=== PATIENT | female | born 1995 | race African-American/Black ===

== ENCOUNTER 2021-08-09 11:32 | Emergency (ER) | payer OTHER, SELFPAY ==
--- NOTE | 2021-08-09 11:41 | ED.URI ---
HPI - URI/Sore Throat General Chief Complaint: Upper Respiratory Infection Stated Complaint: Flu Time Seen by Provider: 08/09/21 11:41 Source: patient Mode of arrival: ambulatory Limitations: no limitations History of Present Illness HPI Narrative: Eyad is a 26-year-old female patient who ambulated into the [facility]. She has a 1 day history of body aches, headache, chills, patient states her mother has the same thing. Patient has no allergies, patient has no medical history or surgical history. Patient was not vaccinated for Covid or influenza this year. MD elicited complaint: fever and nasal congestion Review of Systems Review of Systems: CONSTITUTIONAL: + body aches, denies fever, +chills, or sweats. EYES: Denies visual changes, redness, or discharge. ENT: Denies rhinorrhea,+ congestion,denies sore throat, or otalgia. CARDIOVASCULAR: Denies chest pain, palpitations, or edema. RESPIRATORY: Denies cough or dyspnea. GASTROINTESTINAL: Denies abdominal pain, nausea, vomiting, or diarrhea. GENITOURINARY: Denies dysuria or hematuria. SKIN: Denies rash, itching, or wounds. MUSCULOSKELETAL: Denies back pain, joint pain, or myalgia. NEUROLOGIC: + headache,denies numbness, tingling, or weakness. PSYCH: Denies depression or anxiety. All systems reviewed & are unremarkable except as noted in HPI and below PMFSH Comments At time of signature, I have reviewed and agree with nursing past medical, surgical, social and family history unless otherwise noted. Please see nursing chart for further information. There is no relevant family history pertinent to the presenting complaint Exam Narrative: GENERAL: Well-appearing, well-nourished, and in no acute distress. HEAD: Normocephalic, atraumatic. EYES: EOMI. No redness or drainage. Conjunctivae normal. ENT: Mucous membranes pink and moist. Nares clear. No rhinorrhea. TMs normal bilaterally. Posterior pharynx has mild edema , mild erythema , no exudate Uvula midline. NECK: Normal AROM. Supple. No lymphadenopathy. CHEST: No respiratory distress. Clear to auscultation. HEART: Regular rate and rhythm. No murmur appreciated. Normal peripheral pulses. MUSCULOSKELETAL: No bony tenderness. EXTREMITIES: Normal range of motion. No edema. SKIN: Warm, hot, no rash. Capillary refill normal. Normal skin turgor. NEURO: No focal deficits. Alert and oriented x3. Gait steady. PSYCH: Normal affect. No signs of depression or anxiety. Course Vital Signs Vital signs: Vital Signs Temperature 36.9 C 08/09/21 11:47 Pulse Rate 106 H 08/09/21 11:47 Respiratory Rate 16 08/09/21 11:47 Blood Pressure 130/59 L 08/09/21 11:47 Pulse Oximetry 100 08/09/21 11:47 Temperature 36.9 C 08/09/21 11:47 Pulse Rate 106 H 08/09/21 11:47 Respiratory Rate 16 08/09/21 11:47 Blood Pressure 130/59 L 08/09/21 11:47 Pulse Oximetry 100 08/09/21 11:47 Reviewed. Pt has been instructed to follow up with her PCP regarding her elevated blood pressure today. MDM - URI/Sore Throat MDM Narrative Medical decision making narrative: Influenza a and B are both negative. She has only 1 day of symptoms. Patient will be offered a Covid PCR test via the drive-through on Tuesday. Patient is use [id number] cold medications Differential Diagnosis Differential diagnosis: Likely upper respiratory infection, sinusitis, viral infection, influenza and pharyngitis Medical Records Attestation: I reviewed the patient's medical records. Lab Data Attestation: I reviewed the patient's lab results. Labs: Lab Results 08/09/21 Range/Units 11:56 POC SARS CoV-2 Ag Negative (Negative) Influenza A Screen Negative Reference Range: Negative Influenza B Screen Negative Reference Range: Negative Critical Care Time Critical Care Time Critical Care Time: No Discharge Danie
[2021-08-09 11:47] VITALS: BP 130/59; PULSE 106; RESP 16; TEMP 36.9; O2SAT 100
== END 2021-08-09 12:45 | disposition home or self-care (01) ==
PROVIDERS: Emergency Provider Nurse Practitioner Family
DX: B34.9 Viral infection, unspecified (principal); Z20.822 Contact with and (suspected) exposure to COVID-19
CPT/HCPCS: 87426; 87804; 99203; C9803; G0463

== ENCOUNTER 2022-08-25 09:09 | Emergency (ER) | payer OTHER, SELFPAY ==
[2022-08-25 09:15] VITALS: BP 101/86; PULSE 100; RESP 18; TEMP 36.4; O2SAT 100
--- NOTE | 2022-08-25 09:22 | ED.EAR ---
HPI - Ear Problem General Chief complaint: Ear Stated complaint: ear ache Time Seen by Provider: 08/25/22 09:11 History of Present Illness HPI Narrative: 27-year-old female presents to the emergency room for evaluation of an earache she has had for 3 weeks. Patient states that she was at an outside emergency room for this earache and was diagnosed with swimmer's ear. Patient states that she has taken her prescribed medication for 10 days and is not experiencing any relief. Reports drainage from the right ear tenderness on palpation. Review of Systems Review of Systems: CONSTITUTIONAL: Denies fever, chills, or sweats. EYES: Denies visual changes, redness, or discharge. ENT: Reports right ear pain CARDIOVASCULAR: Denies chest pain, palpitations, or edema. RESPIRATORY: Denies cough or dyspnea. GASTROINTESTINAL: Denies abdominal pain, nausea, vomiting, or diarrhea. GENITOURINARY: Denies dysuria or hematuria. SKIN: Denies rash or itching. MUSCULOSKELETAL: Denies back pain, joint pain, or myalgia. NEUROLOGIC: Denies headache, numbness, dizziness, or weakness. PSYCHIATRIC: Denies anxiety or depression. Exam Narrative: GENERAL: Well-appearing, well-nourished, no physical limitations, and in no acute distress. HEAD: Normocephalic, atraumatic. EYES: Conjunctivae normal, PERRLA and EOMI. ENT: External nose normal, Nares clear, no rhinorrhea or epistaxis. Mucous membranes moist. Oropharynx without tonsillar hypertrophy exudate or other lesions. External ears normal. Right ear canal edematous. Right tragal tenderness CHEST: Clear to auscultation. No respiratory distress. No wheezes rales or rhonchi. HEART: Regular rate and rhythm. No murmur heard. Normal peripheral pulses. EXTREMITIES: Normal range of motion. No edema. No clubbing or cyanosis SKIN: Warm, dry, no rash. No noted wounds NEURO: No focal deficits. Alert and oriented x3. MAEW. CN's II-XI intact bilaterally, normal gait PSYCH: Cooperative. Normal mood and affect. Course Vital Signs Vital signs: Vital Signs Temperature 36.4 C 08/25/22 09:15 Pulse Rate 100 08/25/22 09:15 Respiratory Rate 18 08/25/22 09:15 Blood Pressure 101/86 08/25/22 09:15 Pulse Oximetry 100 08/25/22 09:15 Oxygen Delivery Room Air 08/25/22 09:15 Temperature 36.4 C 08/25/22 09:15 Pulse Rate 100 08/25/22 09:15 Respiratory Rate 18 08/25/22 09:15 Blood Pressure 101/86 08/25/22 09:15 Pulse Oximetry 100 08/25/22 09:15 Oxygen Delivery Room Air 08/25/22 09:15 Medical Decision Making Vital Signs Vital Signs: Vital Signs Temperature 36.4 C 08/25/22 09:15 Pulse Rate 100 08/25/22 09:15 Respiratory Rate 18 08/25/22 09:15 Blood Pressure 101/86 08/25/22 09:15 Pulse Oximetry 100 08/25/22 09:15 Oxygen Delivery Room Air 08/25/22 09:15 Temperature 36.4 C 08/25/22 09:15 Pulse Rate 100 08/25/22 09:15 Respiratory Rate 18 08/25/22 09:15 Blood Pressure 101/86 08/25/22 09:15 Pulse Oximetry 100 08/25/22 09:15 Oxygen Delivery Room Air 08/25/22 09:15 Discharge Plan Discharge Clinical Impression: Otitis externa Patient Disposition: Home, Self-Care Condition: Stable Instructions: Antibiotic Form, Swimmer's Ear (ED) Prescriptions: New ofloxacin 0.3 % drops 2 drp otic (ear) QID Qty: 10 0RF Follow-up/Referrals: PHYSICIAN,STAFF COUNSEL [Primary Care Provider] - Time of Disposition: :24
== END 2022-08-25 09:50 | disposition home or self-care (01) ==
LOC: ANHED 09:27
PROVIDERS: Emergency Provider Nurse Practitioner Family
DX: H60.91 Unspecified otitis externa, right ear (principal)
CPT/HCPCS: 96372; 99283; J1100

== ENCOUNTER 2023-04-20 18:41 | Emergency (ER) | payer OTHER, SELFPAY ==
[2023-04-20 18:48] VITALS: BP 119/67; PULSE 87; RESP 16; TEMP 36.8; O2SAT 100
--- NOTE | 2023-04-20 19:48 | PC.NURSE ---
attempted to call patient to room. no answer
--- NOTE | 2023-04-20 20:26 | PC.NURSE ---
2nd attempt to call patient. no answer
== END 2023-04-20 22:41 | disposition left against medical advice (07) ==
DX: H92.02 Otalgia, left ear (principal)
CPT/HCPCS: 99199

== ENCOUNTER 2023-04-20 19:40 | Emergency (ER) | payer OTHER, SELFPAY ==
--- NOTE | 2023-04-20 19:47 | ED.EAR ---
HPI - Ear Problem General Chief complaint: Ear Stated complaint: Ear Irritation Time Seen by Provider: 04/20/23 19:48 Source: patient Mode of arrival: ambulatory Limitations: no limitations History of Present Illness HPI Narrative: Patient is a 27-year-old female who presents with left ear pain for 3 days. Reports last time she had similar symptoms she had an ear infection. Denies any congestion, sore throat, fever, chills, nausea, vomiting, diarrhea. MD Complaint: ear pain Related Data Allergies Allergy/AdvReac Type Severity Reaction Status Date / Time No Known Allergies Allergy Verified 04/20/23 19:46 Review of Systems Review of Systems: All systems reviewed & are unremarkable except as noted in HPI and below Constitutional: Constitutional: Denies body ache(s), Denies chills, Denies fever(s), Denies headache(s) and Denies malaise Eyes: Eyes: Denies blurry vision, Denies eye discharge and Denies irritation ENT: Reports otalgia, Denies headache(s), Denies nasal congestion, Denies nasal discharge and Denies sore throat Cardiovascular: Cardiovascular: Denies chest pain, Denies edema, Denies palpitations and Denies dyspnea on exertion Respiratory: Respiratory: Denies cough and Denies dyspnea on exertion Gastrointestinal: Gastrointestinal: Denies abdominal pain, Denies diarrhea, Denies nausea and Denies vomiting Musculoskeletal: Musculoskeletal: Denies back pain, Denies arthralgias and Denies muscle weakness Integumentary/Breasts: Skin/Breast: Denies pruritus and Denies rash Neurologic: Denies headache(s) Psychiatric: Psychiatric: Reports no additional psychiatric complaints Endocrine: Endocrine: Denies palpitations PMFSH Comments At time of signature, agree with nursing past medical, surgical, social and family history. There is no relevant family history pertinent to the presenting complaint? Exam Const: General: cooperative, healthy appearing, no acute distress and well nourished Nutritional Appearance: well nourished Orientation/consciousness: patient oriented x3 Limitations: no limitations HENMT: Head: normal to inspection, normocephalic and atraumatic Ears: hearing grossly normal bilaterally, TM normal on the right, no periauricular adenopathy, Abnormal EAC present erythema on the left, edema on the left and EAC tenderness on the left and TM abnormal bulging on the left and erythematous on the left Face/Nose/Sinus: Normal external nose present, Normal nares present, Normal nasal mucous membranes and turbinates present, No nasal discharge present, normal facial exam and sinuses nontender Face and sinus: normal facial exam and sinuses nontender Mouth: Yes Normal oral and palatal mucosa present, Yes lip normal, Yes tongue normal and Yes moist mucous membranes Throat: posterior oropharynx normal, tonsils normal and uvula midline Eyes: General: appearance normal, both eyes and all related structures Alignment and Position: alignment normal and position normal Eyelids: eyelids normal Pupils: Equal, round and reactive pupils present EOM: EOMs intact bilaterally Neck: Neck: normal visual inspection, full ROM, no lymphadenopathy and supple Chest: Chest palpation & inspection: normal inspection of the chest Resp: Effort & Inspection: normal respiratory effort and able to speak in complete sentences Auscultation: clear to auscultation bilaterally, no crackles, no rales, no rhonchi and no wheezes Cardio: Rate: regular rate Rhythm: regular rhythm Heart sounds: S1 normal heart sound present and S2 normal heart sound present Skin: General skin exam: normal color and no rashes or lesions noted Neuro: General: patient oriented x3 and moves all extremities Cranial nerves: Yes Equal, round and reactive pupils present Cognition (Neuro): normal cognition Speech: normal speech Gait exam (Neuro): Normal gait present Extrem: General: normal to inspection and full ROM Psych: Appearance: grossly normal and well kempt Me
[2023-04-20 19:48] VITALS: BP 118/79; PULSE 94; RESP 16; TEMP 37.8; O2SAT 100
== END 2023-04-20 20:28 | disposition home or self-care (01) ==
PROVIDERS: Emergency Provider Nurse Practitioner Family
DX: H60.92 Unspecified otitis externa, left ear (principal); H66.002 Acute suppurative otitis media without spontaneous rupture of ear drum, left ear
CPT/HCPCS: 99213; G0463

== ENCOUNTER 2023-08-31 10:59 | Outpatient (CLI) | payer OTHER, SELFPAY ==
[2023-08-31 11:29] LABS: Hematocrit 34.6 % (37.0-47.0); Hemoglobin 9.8 g/dL (12.0-15.0); Mean Corpuscular HGB Conc 28.3 g/dl (32-36); Mean Corpuscular Hemoglobin 23.3 pg (26-34); Mean Corpuscular Volume 82.4 fl (80-100); Mean Platelet Volume 12.1 fl (7.4-10.4); Platelet Count Result 268 k/mm3 (150-375); Red Cell Distribution Width 14.2 % (11.5-14.5); White Blood Count 6.5 K/mm3 (4.5-10.0)
[2023-08-31 11:33] LABS: Appearance Urine Clear (Clear); Bilirubin Urine Negative (Negative); Blood Urine Negative (Negative); Color Urine Yellow (Yellow); Glucose Urine UA Negative (Negative); Ketones Urine Negative (Negative); Leukocyte Esterase Ur Negative LEU/UL (NEGATIVE); Nitrate Urine Negative (Negative); Protein Urine Negative (Negative); Specific Grav Ur 1.027 (1.001-1.035); Urobilinogen Urine 0.2 mg/dL (<2.0); pH Urine 6.5 (5.0-9.0)
[2023-08-31 11:36] LABS: Add Urine Microscopic? NO
[2023-08-31 11:44] LABS: Alanine Aminotransferase 18 U/L (6-35); Albumin Level 4.4 g/dL (3.5-5.1); Alkaline Phosphatase 53 U/L (38-126); Anion Gap 6 mmol/L (8-16); Aspartate Amino Transferase 24 U/L (14-36); Bilirubin,Total 0.2 mg/dL (0.2-1.3); Blood Urea Nitrogen 15 mg/dL (7-17); Calcium 9.3 mg/dL (8.4-10.2); Carbon Dioxide 27 mmol/L (22-30); Chloride 107 mmol/L (98-107); Cholesterol 156 mg/dL (0-200); Estimated Glomerular Filt Rate > 60; Glucose 94 mg/dL (65-110); HDL Direct 47 mg/dL; Potassium 4.1 mmol/L (3.4-5.0); Sodium 140 mmol/L (137-145); Triglycerides 46 mg/dL (<150)
[2023-08-31 11:51] LABS: Hemoglobin A1C 5.4 % (<5.7)
[2023-08-31 11:55] LABS: LDL Cholesterol Direct 85 mg/dL
[2023-08-31 12:05] LABS: Free T4 Free Thyroxine 0.82 ng/mL (0.78-2.19); Vitamin D 25 Hydroxy 18.9 ng/mL
== END 2023-08-31 11:00 | disposition home or self-care (01) ==
LOC: ANHLAB 11:02
PROVIDERS: PCP Emergency Medicine; Visit Provider Emergency Medicine
DX: Z00.00 Encounter for general adult medical examination without abnormal findings (principal); H60.92 Unspecified otitis externa, left ear
CPT/HCPCS: 36415; 80053; 80061; 81003; 82306; 83036; 84439; 84443; 85027

== ENCOUNTER 2025-05-15 10:36 | Outpatient (CLI) | payer OTHER, SELFPAY ==
[2025-05-15 11:04] LABS: Hematocrit 35.6 % (37.0-47.0); Hemoglobin 10.5 g/dL (12.0-15.0); Mean Corpuscular HGB Conc 29.5 g/dl (32-36); Mean Corpuscular Hemoglobin 24.0 pg (26-34); Mean Corpuscular Volume 81.5 fl (80-100); Platelet Count Result 241 k/mm3 (150-375); Red Blood Count 4.37 M/mm3 (4.2-5.4); White Blood Count 7.7 K/mm3 (4.5-10.0)
[2025-05-15 11:23] LABS: Alanine Aminotransferase 23 U/L (6-35); Albumin Level 4.4 g/dL (3.5-5.1); Alkaline Phosphatase 63 U/L (38-126); Anion Gap 8 mmol/L (4-12); Aspartate Amino Transferase 27 U/L (14-36); Bilirubin,Total 0.3 mg/dL (0.2-1.3); Blood Urea Nitrogen 13 mg/dL (7-17); Calcium 9.5 mg/dL (8.4-10.2); Carbon Dioxide 25 mmol/L (22-30); Chloride 103 mmol/L (98-107); Cholesterol 146 mg/dL (0-200); Estimated Glomerular Filt Rate > 60; Glucose 91 mg/dL (65-110); HDL Direct 42 mg/dL; Potassium 4.1 mmol/L (3.4-5.0); Sodium 136 mmol/L (137-145); Total Protein 8.1 g/dL (6.3-8.2); Triglycerides 43 mg/dL (<150)
--- OUTSIDE RECORDS SUMMARY | 2025-05-15 11:28 | XMS_ITS | Clinical Summary ---
Author Organization [facility] Address [address] [place] [address] Care Team Providers Care Pitching Coach Name Role Phone No, Physician Primary Care Provider [phone] Allergies No known active allergies Social History Tobacco Use Types Packs/Day Years Used Date Smoking Tobacco: Never Assessed Personal Safety Answer Date Recorded Getting School Help Needed Denies 08/06 Comments No Sex and Gender Information Value Date Recorded Sex Assigned at Not on file Legal Sex Female 6:56 PM DIRECTOR OF OCCUPATIONAL THERAPY Gender Identity Not on file Sexual Orientation Not on file Obstetrics History Last Filed Vital Signs Vital Sign Reading Time Taken Comments Blood Pressure 126/71 08/20/2022 10:27 AM DIRECTOR OF OCCUPATIONAL THERAPY Pulse 74 08/20/2022 10:27 AM DIRECTOR OF OCCUPATIONAL THERAPY Temperature 37.1 C (98.8 F) 08/20/2022 10:27 AM DIRECTOR OF OCCUPATIONAL THERAPY Respiratory Rate 18 08/20/2022 10:27 AM DIRECTOR OF OCCUPATIONAL THERAPY Oxygen Saturation 100% 08/20/2022 10:27 AM DIRECTOR OF OCCUPATIONAL THERAPY Inhaled Oxygen Concentration - - Weight 93.5 kg (206 lb 2.1 oz) 08/20/2022 10:27 AM DIRECTOR OF OCCUPATIONAL THERAPY Height 162.6 cm (5' 4) 08/20/2022 10:27 AM DIRECTOR OF OCCUPATIONAL THERAPY Body Mass Index 35.38 08/20/2022 10:27 AM DIRECTOR OF OCCUPATIONAL THERAPY Plan of Treatment Not on file Insurance [facility] Care Teams Pitching Coach Relationship Specialty Start Date End Date No, Physician PCP - General 06/15/20
--- OUTSIDE RECORDS SUMMARY | 2025-05-15 11:28 | XMS_ITS | Clinical Summary ---
Author Organization [facility] Address [address] [place] [id number] Care Team Providers Care Access Director Name Role Phone None, Provider MD Primary Care Provider Unavaila ble Allergies No known active allergies Medications fluticasone propionate (FLONASE) 50 MCG/ACT nasal spray 1 spray by Nasal route daily. 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 Gender Identity Not on file Sexual Orientation Not on file Last Filed Vital Signs Vital Sign Reading Time Taken Comments Blood Pressure 134/81 10/27/2019 1:40 PM CDT Pulse 94 10/27/2019 1:40 PM CDT Temperature 36.4 C (97.6 F) 10/27/2019 11:13 AM CDT Respiratory Rate 20 10/27/2019 1:40 PM CDT Oxygen Saturation 99% 10/27/2019 1:40 PM CDT Inhaled Oxygen Concentration - - Weight 87.5 kg (193 lb) 10/27/2019 11:13 AM CDT Height 162.6 cm (5' 4) 10/27/2019 11:13 AM CDT Body Mass Index 33.13 10/27/2019 11:13 AM CDT Plan of Treatment Health Maintenance Due Date Last Done Comments Cervical Cancer Screening Pa p Smear (Age 21 to 29) Every 3 Years 1997 Cervical Cancer Screening 1997 Annual Physical 2000 Hepatitis C 2015 DTaP, Tdap and Td Vaccines ( 1 - Tdap) 2016 Hepatitis B Vaccines (1 of 3 - 19+ 3-dose series) 2016 HPV Vaccines (1 - 3-dose SCD M series) 2024 COVID-19 Vaccine (1 - 2023-2 5 season) 2025 Meningococcal B Vaccine Aged Out No l onger eligible based on patient's age to complete this topic Meningococcal Vaccine Aged Out No oseas maribel eligible based on patient's age to complete this topic Pneumococcal Vaccine: Pediat rics (0 to 5 Years) and At-Risk Patients (6 to 49 Years) Aged Out No longer eligible b ased on patient's age to complete this topic RSV Immunizations Under 20 Months Aged Out No longer eligible based on patient's age to complete this topic Insurance MEDICAID Care Teams Access Director Relationship Specialty Start Date End Date None, Provider, PCP - General 09/19/18
[2025-05-15 11:34] LABS: Free T4 Free Thyroxine 0.85 ng/dL (0.78-2.19)
[2025-05-15 11:55] LABS: Thyroid Stimulating Hormone 2.060 uIU/mL (0.465-4.680)
[2025-05-15 20:43] LABS: Iron 36 ug/dL (37-170)
[2025-05-15 20:53] LABS: Percent Iron Saturation 7 % (20-50)
== END 2025-05-15 10:37 | disposition home or self-care (01) ==
PROVIDERS: PCP Emergency Medicine; Visit Provider Emergency Medicine
DX: Z00.00 Encounter for general adult medical examination without abnormal findings (principal); D64.9 Anemia, unspecified; E66.9 Obesity, unspecified
CPT/HCPCS: 36415; 80053; 80061; 83540; 83550; 84439; 84443; 85027

== ENCOUNTER 2025-06-28 12:28 | Outpatient (CLI) | payer OTHER, SELFPAY ==
[2025-06-28 13:06] LABS: Hematocrit 34.7 % (37.0-47.0); Hemoglobin 10.2 g/dL (12.0-15.0); Immature Granulocyte Percent A 0.4 % (0-0.5); Lymphocytes Absolute Auto 1.75 K/mm3 (0.9-3.2); Mean Corpuscular HGB Conc 29.4 g/dl (32-36); Mean Corpuscular Hemoglobin 24.1 pg (26-34); Mean Corpuscular Volume 81.8 fl (80-100); Nucleated Red Blood Cells Absolute Auto 0.000 K/mm3 (0.0-0.012); Nucleated Red Blood Cells Perc 0.0 % (0.0-0.2); Platelet Count Result 267 k/mm3 (150-375); Red Blood Count 4.24 M/mm3 (4.2-5.4); White Blood Count 7.1 K/mm3 (4.5-10.0)
[2025-06-28 13:24] LABS: Alanine Aminotransferase 25 U/L (6-35); Albumin Level 4.3 g/dL (3.5-5.1); Alkaline Phosphatase 61 U/L (38-126); Anion Gap 8 mmol/L (4-12); Aspartate Amino Transferase 24 U/L (14-36); Bilirubin,Total 0.3 mg/dL (0.2-1.3); Blood Urea Nitrogen 13 mg/dL (7-17); Calcium 9.3 mg/dL (8.4-10.2); Carbon Dioxide 25 mmol/L (22-30); Chloride 105 mmol/L (98-107); Estimated Glomerular Filt Rate > 60; Glucose 82 mg/dL (65-110); Iron 44 ug/dL (37-170); Potassium 4.2 mmol/L (3.4-5.0); Sodium 138 mmol/L (137-145); Total Protein 7.8 g/dL (6.3-8.2)
[2025-06-28 13:33] LABS: Percent Iron Saturation 10 % (20-50)
[2025-06-28 13:50] LABS: Anisocytosis Occasional; Ovalocytes 1+; Schistocytes None Seen
[2025-06-28 13:58] LABS: Hypochromasia Occasional
[2025-06-28 14:05] LABS: Ferritin 6.48 ng/mL (6.24-137)
== END 2025-06-28 12:29 | disposition home or self-care (01) ==
PROVIDERS: PCP Emergency Medicine; Visit Provider Internal Medicine Hematology & Oncology
DX: D50.0 Iron deficiency anemia secondary to blood loss (chronic) (principal)
CPT/HCPCS: 36415; 80053; 82728; 83540; 83550; 85025